=== PATIENT | female | born 1960 | race Caucasian/White ===

== ENCOUNTER 2017-07-08 09:31 | Emergency (ER) | payer BC, OTHER ==
[2017-07-08 10:13] VITALS: BP 137/87
[2017-07-08 10:49] LABS: Urine Bilirubin Negative (NEGATIVE); Urine Blood 25 /ul (NEGATIVE); Urine Ketone Negative (NEGATIVE); Urine Nitrite Negative (NEGATIVE); Urine Protein 15 mg/dL (NEGATIVE); Urine Specific Gravity 1.015 SP.GR. (1.005-1.010); Urine Urobilinogen Normal (NORMAL); Urine pH 7.5 pH (5.0-7.0)
[2017-07-08 10:57] LABS: Urine Appearance Clear; Urine Bacteria TRACE; Urine Color Yellow; Urine WBC 0-5 /hpf (0-5)
--- NOTE | 2017-07-08 11:59 | ERNOTE ---
ER Female HPI Date of Service: 07/08/17 Stated Complaint: KIDNEY STONE Presenting Symptoms: other - right flank pain Time Seen by Provider: 07/08/17 10:22 Source: patient Exam Limitations: no limitations Immunizations: IMMUNIZATION HX Immunizations Up to Date Yes History of Influenza Vaccine Yes Hx Pneumococcal Vaccination Yes Allergies/Adverse Reactions: Allergies acetaminophen [From Vicodin] Allergy (Intermediate, Verified 04/13/16 12:53) hydrocodone bitartrate [From Vicodin] Allergy (Intermediate, Verified 04/13/16 12:53) nitrofurantoin [From Macrobid] Allergy (Intermediate, Verified 04/13/16 12:53) nitrofurantoin macrocrystalline [From Macrobid] Allergy (Intermediate, Verified 04/13/16 12:53) codeine [Codeine] Allergy (Verified 04/13/16 12:53) Sulfa (Sulfonamide Antibiotics) [Sulfa(Sulfonamide Antibiotics)] Allergy ( Verified 04/13/16 12:53) Home Medications: HOME MEDICATIONS Ipratropium/Albuterol Sulfate [Combivent Inhaler] 1 puff IH TID 02/01/13 [Last Taken 06/22/13] Bumetanide [Bumex] 2 mg PO DAILY 05/11/14 [Last Taken Unknown] Potassium Chloride [Klor-Con M10] 10 meq PO DAILY 05/11/14 [Last Taken Unknown] Naproxen [Naprosyn] 500 mg PO BID PRN #60 tab 04/13/16 [Last Taken Unknown] Amox Tr/Potassium Clavulanate [Augmentin 875-125 Tablet] 875 mg PO Q12H #20 tab 07/08/17 [Last Taken Unknown] - History of Present Illness Narrative: Patient presents to the ED for right flank pain. She relates she has a long Hx of kidney stones and has been having off and on right flnak pain for the last week. She was concerned that she had a recurrent kidney stone and is requesting a CT. SHe denies abdominal pain. no fever or vomiting. No pain with urination. No CP or SOB. No diarrhea or blood in stool. She states she has not had any abdominal pain. Pain right now mild but it fluctuates. Timing: Present: intermittent Quality: Present: mild Onset Location: Present: other - right flank Radiation: Present: none Activities at Onset: Present: none Modifying Factors - (Improves): Present: other - nothing Modifying Factors - (Worsens): Present: other - nothing Associated Symptoms: Absent: fever/chills, vomiting, abdominal pain, dysuria, urinary frequency Prior Treatment: Absent: recently seen Review of Systems - Review of Systems Constitutional: Absent: fever Respiratory: Absent: shortness of breath Cardiology: Absent: chest pain Gastrointestinal/Abdominal: Present: See HPI Genitourinary: Absent: frequency, dysuria Musculoskeletal: Present: no symptoms reported Skin: Absent: rash Neurological: Absent: weakness - Patient's Past Medical History Patient History - Medical: Chronic Pain, Kidney stone Patient History - Cardiac/Respiratory: Asthma Patient History - Cancer: No Hx of Cancer Patient History - Surgical Procedures: Appendectomy, Hysterectomy, T & A, Other Patient History - Other: None LMP (females 10-50): other - Family History Mother Family History - Cardiac/Respiratory: Valvular Heart Disease Father Family History - Medical: - Social History Living Situations: home Abuse History: No History of abuse Psych History: No pertinent hx Smoking Status: Never smoker - Immunizations Immunizations Up to Date: Yes Hx Pneumococcal Vaccination: Yes History of Influenza Vaccine: Yes Physical Exam - Physical Exam General Appearance: Present: alert, no apparent distress Head Exam: Present: normal inspection, no evidence of injury Eye Exam: Normal inspection: bilateral, PERRL: bilateral Ears, Nose, Throat: Present: normal ENT inspection Neck: Present: normal inspection Respiratory: Present: no respiratory distress, normal breath sounds, no accessory muscle use, lungs clear Cardiovascular/Chest: Present: regular rate, rhythm Gastrointestinal/Abdominal: Present: normal bowel sounds, nontender, soft, no organomegaly. Absent: tenderness, guarding, rebound Back Exam: Present: no vertebral tenderness, CVA tenderness (R) Extremity Exam: Present: normal inspection Neurological Exam: Present: alert, normal mood/affect, no motor/sensory deficits Skin Exam: Present: normal color, warm/dry ED Progress - Results and Orders Patient's Lab Results:: I have reviewed the patient's lab results. - Vital Signs Patient's Vital Signs:: I have reviewed the patient's vital signs. Vital Signs: Vital Signs 07/08/17 10:09 Temperature 36.6 C Pulse Rate 87 Respiratory 15 Rate Blood Pressure 137/87 O2 Sat by Pulse 95 Oximetry - CT/Ultrasound CT/Ultrasound Narrative: I reviewed official report of CT scan abdomen and pelvis - Progress/Reassessment Chief Complaint: Genitourinary Problem Progress Note-Subjective: 07/08/17 11:57 I discussed findings with the patient. Will treat the possible diverticulitis. I did offer her additional abdominal lab testing but she declines this, understands risks and benefits. She is requesting to go home. I discussed warning signs and reasons to return as well as the need for close f/u. Departure Clinical Impression: Right flank pain, Diverticulitis - Departure Disposition: Home self-care Condition: Stable Instructions: Flank Pain, [id number] Additional Instructions: Rest. Fluids. Antibiotics as directed. Follow-up with your doctor within 3 days for a re-check and to discuss your CT scan and any additional testing that may be needed. Return here if you change your mind about having any of the additional lab testing we discussed, or for fever, increased pain, vomiting or if your condition worsens or changes in any way. Referrals: Jhon Zambrano DO [Primary Care Provider] - Prescriptions: Amox Tr/Potassium Clavulanate [Augmentin 875-125 Tablet] 875 mg PO Q12H #20 tab
== END 2017-07-08 12:00 | disposition home or self-care (01) ==
LOC: ER 09:31
DX: R10.9 Unspecified abdominal pain (principal); K57.92 Diverticulitis of intestine, part unspecified, without perforation or abscess without bleeding; G89.29 Other chronic pain; Z87.442 Personal history of urinary calculi

== ENCOUNTER 2020-02-25 18:39 | Observation (INO) ==
--- NOTE | 2020-02-25 19:01 | ERNOTE ---
Back Pain ER HPI Date of Service: 02/25/20 Time Seen by Provider: 02/25/20 18:57 Source: patient Exam Limitations: no limitations Immunizations: IMMUNIZATION HX Immunizations Up to Date Yes History of Influenza Vaccine Yes Hx Pneumococcal Vaccination Yes Allergies/Adverse Reactions: Allergies Iodinated Contrast Media [Iodinated Contrast- Oral and IV Dye] Allergy (Intermediate, Verified 07/20/19 14:57) Swelling of Throat Penicillins Allergy (Intermediate, Verified 07/20/19 14:57) Swelling of Throat codeine [Codeine] Allergy (Mild, Verified 07/20/19 14:57) Hives apixaban [From Eliquis] Allergy (Verified 07/20/19 14:57) Anaphylaxis hydrocodone bitartrate [From Vicodin] Adverse Reaction (Mild, Verified 07/20/19 14:57) Nausea Home Medications: HOME MEDICATIONS Ipratropium/Albuterol Sulfate [Combivent Inhaler] 1 puff IH TID 02/01/13 [Last Taken 06/22/13] Bumetanide [Bumex] 2 mg PO DAILY 05/11/14 [Last Taken Unknown] Potassium Chloride [Klor-Con M10] 10 meq PO DAILY 05/11/14 [Last Taken Unknown] Fluticasone/Vilanterol [Breo Ellipta 100-25 Mcg INH] 1 puff INH DAILY 08/07/17 [Last Taken Unknown] Cholecalciferol (Vitamin D3) [Vitamin D3] 1,000 unit PO 3XW 04/25/19 [Last Taken Unknown] Warfarin Sodium [Coumadin] 2.5 mg PO DAILY 07/20/19 [Last Taken Unknown] - Pain Score Pain Score #1 Pain Score: 10 Narrative: The patient is a 59 year old female who presents for upper back pain which has been present for 3 hours. There are associated symptoms to dyspnea. The patient reports pain to upper back, 10/10. There are no alleviating factors. There are aggravating factors of activity. Previous treatments have included: none. The past medical history includes: asthma, intestinal fistula with placement of colostomy. The social history is negative. The patient has had no known ill contacts. Patient denies injury and states she was laying in bed and had abrupt pain. Patient denies associated increased dyspnea, cough, dizziness, radiation of pain of chest or nausea. Patient reports similar symptoms in the past which was associated with nerve pain and received relief after administration of steroid injection. Review of Systems - Review of Systems Constitutional: Present: fatigue. Absent: recent illness, fever EYE: Present: no symptoms reported ENT: Present: no symptoms reported. Absent: ear pain, nasal drainage, sore throat Respiratory: Present: shortness of breath. Absent: cough Cardiology: Absent: chest pain Gastrointestinal/Abdominal: Present: no symptoms reported. Absent: nausea, vomiting, diarrhea, abdominal pain Genitourinary: Present: no symptoms reported. Absent: dysuria Musculoskeletal: Present: back pain Skin: Present: no symptoms reported. Absent: rash Neurological: Present: no symptoms reported All Other Systems: All systems neg except as marked Medical History (Last Reviewed 02/25/20 @ 19:12 by KIMBERLY Abdul) Asthma Colostomy in place Intestinal fistula Lithoptysis Surgical History: Surgical History (Last Reviewed 02/25/20 @ 19:12 by KIMBERLY Abdul) History of intestinal surgery Hx of appendectomy Hx of tonsillectomy Hx of total hysterectomy Family History: Family History (Last Reviewed 02/25/20 @ 19:12 by KIMBERLY Abdul) Other No pertinent family history Social History: (Last Reviewed 02/25/20 @ 19:12 by KIMBERLY Abdul) Tobacco: Smoking Status: Never smoker Alcohol: alcohol intake: never Substance Use: substance use type: does not use Physical Exam - Physical Exam General Appearance: Present: wd/wn, alert, moderate distress Head Exam: Present: normal inspection, no evidence of injury Eye Exam: Normal inspection: bilateral Neck: Present: normal inspection Respiratory: Present: chest nontender, accessory muscle use, decreased breath sounds, rhonchi Cardiovascular/Chest: Present: no murmur, tachycardia Gastrointestinal/Abdominal: Present: normal bowel sounds, nontender, nondistended, soft, no organomegaly Back Exam: Present: normal inspection, vertebral tenderness - mild to thoracic and lumbar midline, no focal point tenderness at site of reported pain, minimal thoracic paraspinal pain with palpation Neurological Exam: Present: alert, oriented, normal mood/affect, no motor/sensory deficits Skin Exam: Present: normal color, warm/dry Progress - Date and Time Seen: Date and Time: 02/25/20 20:28 Patient PESI score intermediate risk, age adjusted d-dimer- 570 VTE unlikely. Due to patient's CXR with diffuse interstitial edema will await BNP and proceed. Results of testing was discussed with patient. Patient requesting that she be given steroids as is the only thing that aids with her symptoms. Discussed with patient that her symptoms may be associated with previous diagnosis but chest x- ray findings indicate interstitial edema which could be the likely cause of her back pain and increased chest burning and shortness of breath. Patient states that I must understand that she needs to receive steroids. I discussed this with Dr. Clay and we will administer a single dose of dexamethasone to aid with patient's chronic back pain. 02/25/20 20:51 Case discussed with and will place patient in observation for diuresis and potassium administration. 02/25/20 21:17 Patient refusing IV potassium. Will change to po administration. We will keep patient on telemetry monitoring due to hypokalemia. - Results and Orders Patient's Lab Results:: I have reviewed the patient's lab results. - Vital Signs Patient's Vital Signs:: I have reviewed the patient's vital signs. Vital Signs: Vital Signs 02/25/20 18:44 Temperature 36.3 C Pulse Rate 115 H Respiratory Rate 20 Blood Pressure 124/90 H O2 Sat by Pulse Oximetry 98 - EKG EKG #1 EKG: NSR - wandering baseline, no acute ischemic change, tachycardia rate 120, premature ventricular contraction - X-Ray X-Ray #1 X-Ray: chest Interpretation: Reviewed by me X-ray Comments: IMPRESSION: LOW LUNG VOLUMES. BORDERLINE CARDIOMEGALY WITH PULMONARY VASCULAR CONGESTION. INTERSTITIAL PROMINENCE THAT APPEARS TO BE INTERSTITIAL EDEMA DISCUSSED. Electronically signed by Mynor Rea M.D.. - Progress/Reassessment Chief Complaint: Back Pain Departure Clinical Impression: Hypokalemia Interstitial edema Qualifiers: Edema type: unspecified Qualified Code(s): R60.9 - Edema, unspecified - Departure Disposition: Still a patient Condition: Stable
[2020-02-25 19:26] LABS: Hematocrit 36.7 % (37.0-47.0); Hemoglobin 11.8 gm/dL (12.5-16.0); Mean Cell Volume 91.3 fl (78-100); Mean Corpuscular Hemoglobin 29.4 pg (27-31); Mean Corpuscular Hgb Conc 32.2 g/dl (32-36); Mean Platelet Volume 8.4 fl (8-12.5); Neutrophil # 6.1 K/mm3 (1.3-6.0); Neutrophil % 71.6 % (42-75.0); Platelet Count 308 K/mm3 (150-450); Red Blood Count 4.02 M/mm3 (4.2-5.4); White Blood Count 8.5 K/mm3 (4.0-10.5)
[2020-02-25 19:38] LABS: Prothrombin Time (Patient) 12.9 Seconds (9.1-10.7)
[2020-02-25 19:39] LABS: INR 1.32 INR (0.92-1.08)
[2020-02-25 19:44] LABS: ALT 46 U/L (19-67); AST 23 U/L (0-48); Albumin * 3.1 gm/dl (3.4-5.0); Alkaline Phosphatase * 132 U/L (50-170); Anion Gap 6.4 mmol/L (6.8-13.8); BUN/Creatinine Ratio 10.4 (9.0-21.6); Bilirubin, Total 0.5 mg/dL (0.0-1.1); Blood Urea Nitrogen 8 mg/dL (3-23); Ca. Corrected For Albumin 9.8 mg/dL (8.4-10.2); Calcium * 9.4 mg/dL (7.9-10.9); Carbon Dioxide 40.3 mmol/L (24-32.6); Chloride 93 mmol/L (97-106); Glucose * 141 mg/dL (70-110); Potassium 2.7 mmol/L (3.4-4.6); Sodium 137 mmol/L (132-142); Troponin I Less than 0.017 ng/mL (0.00-0.10)
[2020-02-25] MEDS ORDERED: DEXAMETHASONE SODIUM PHOSP/PF 10 MG/ML VIAL IV ONE (20:42)
[2020-02-25] MEDS ORDERED: WARFARIN SODIUM 5 MG TABLET PO ONE (20:42)
[2020-02-25] MEDS ORDERED: FUROSEMIDE 10 MG/ML VIAL IV ONE (20:42)
[2020-02-25] MEDS: POTASSIUM CHLORIDE IN WATER 100 ML IV SCH ×2 (21:10→22:51)
[2020-02-25] MEDS ORDERED: POTASSIUM CHLORIDE 20 MEQ TABLET.SA PO ONE (21:19)
[2020-02-25] MEDS ORDERED: ALBUTEROL SULFATE 2.5 MG/0.5 ML VIAL.NEB IH PRN (23:54)
[2020-02-26] MEDS: POTASSIUM CHLORIDE IN WATER 100 ML IV SCH ×2 (00:21→03:13)
[2020-02-26] MEDS ORDERED: ALBUTEROL SULFATE 2.5 MG/0.5 ML VIAL.NEB IH PRN (06:47)
[2020-02-26 07:50] LABS: Albumin * 2.9 gm/dl (3.4-5.0); Anion Gap 9.5 mmol/L (6.8-13.8); BUN/Creatinine Ratio 11.5 (9.0-21.6); Bilirubin, Total 0.5 mg/dL (0.0-1.1); Ca. Corrected For Albumin 9.9 mg/dL (8.4-10.2); Calcium * 9.3 mg/dL (7.9-10.9); Carbon Dioxide 35.4 mmol/L (24-32.6); Potassium 3.9 mmol/L (3.4-4.6); Total Protein 6.9 gm/dL (6.2-8.2)
--- NOTE | 2020-02-26 08:10 | HP ---
Chief Complaint - Chief Complaint Date of Service: 02/26/20 Time of Service: 08:09 Medical History (Last Reviewed 02/25/20 @ 22:19 by Brittni Sue RN) Asthma Colostomy in place Intestinal fistula Lithoptysis Surgical History: Surgical History (Last Reviewed 02/25/20 @ 22:19 by Brittni Sue, RN) History of intestinal surgery Hx of appendectomy Hx of tonsillectomy Hx of total hysterectomy Family History: Family History (Last Updated 02/25/20 @ 22:21 by Brittni Sue RN) Mother CHF (congestive heart failure) Father Myocardial infarction Other No pertinent family history Social History: (Last Reviewed 02/25/20 @ 19:25 by Elli Hill RN) Tobacco: Smoking Status: Never smoker Alcohol: alcohol intake: never Substance Use: substance use type: does not use Immunizations: IMMUNIZATION HX Immunizations Up to Date Yes History of Influenza Vaccine Yes Hx Pneumococcal Vaccination Yes Allergies/Adverse Reactions: Allergies Allergy/AdvReac Type Severity Reaction Status Date / Time Iodinated Contrast Media Allergy Intermediate Swelling Verified 07/20/19 14:57 [Iodinated Contrast- Oral of Throat and IV Dye] Penicillins Allergy Intermediate Swelling Verified 07/20/19 14:57 of Throat codeine [Codeine] Allergy Mild Hives Verified 07/20/19 14:57 apixaban [From Eliquis] Allergy Anaphylaxis Verified 07/20/19 14:57 hydrocodone bitartrate AdvReac Mild Nausea Verified 07/20/19 14:57 [From Vicodin] Home Medications: HOME MEDICATIONS Ipratropium/Albuterol Sulfate [Combivent Inhaler] 1 puff IH TID 02/01/13 [Last Taken 06/22/13] Bumetanide [Bumex] 2 mg PO DAILY 05/11/14 [Last Taken Unknown] Potassium Chloride [Klor-Con M10] 10 meq PO DAILY 05/11/14 [Last Taken Unknown] Fluticasone/Vilanterol [Breo Ellipta 100-25 Mcg INH] 1 puff INH DAILY 08/07/17 [Last Taken Unknown] Cholecalciferol (Vitamin D3) [Vitamin D3] 1,000 unit PO 3XW 04/25/19 [Last Taken Unknown] Warfarin Sodium [Coumadin] 2.5 mg PO DAILY 07/20/19 [Last Taken Unknown] Albuterol Sulfate [Albuterol Sulfate 2.5 MG/0.5ML] 1 vial INHALATION TID PRN 02/25/20 [Last Taken Unknown] Exam - Exam Vital Signs: Vital Signs - Last Taken Temp 36.5 C 02/26/20 06:52 Pulse 102 H 02/26/20 06:52 Resp 20 02/26/20 06:52 BP 103/61 02/26/20 06:52 Pulse Ox 95 02/26/20 06:52 Diagnostic Studies: Abnormal Lab Results 02/25/20 02/25/20 02/25/20 Range/Units 19:19 19:19 19:19 RBC 4.02 L (4.2-5.4) M/mm3 Hgb 11.8 L (12.5-16.0) gm/dL Hct 36.7 L (37.0-47.0) % RDW 16.0 H (11.5-14.0) % Immature Gran % (Auto) 0.90 H (0.001-0.429) % Immature Gran # (Auto) 0.08 H (0.000-0.0310) K/mm3 Lymphocytes % 16.0 L (20-51) % Monocytes % 10.2 H (0.0-9) % Neutrophils # 6.1 H (1.3-6.0) K/mm3 Lymphocytes # 1.36 L (1.5-3.5) k/mm3 PT 12.9 H (9.1-10.7) Seconds INR (Anticoag Therapy) 1.32 H (0.92-1.08) INR D-Dimer (0.19-0.49) ug/mL Potassium 2.7 L (3.4-4.6) mmol/L Chloride 93 L (97-106) mmol/L Carbon Dioxide 40.3 H (24-32.6) mmol/L Anion Gap 6.4 L (6.8-13.8) mmol/L Random Glucose 141 H (70-110) mg/dL Albumin 3.1 L (3.4-5.0) gm/dl 02/25/20 02/26/20 Range/Units 19:19 07:31 RBC (4.2-5.4) M/mm3 Hgb (12.5-16.0) gm/dL Hct (37.0-47.0) % RDW (11.5-14.0) % Immature Gran % (Auto) (0.001-0.429) % Immature Gran # (Auto) (0.000-0.0310) K/mm3 Lymphocytes % (20-51) % Monocytes % (0.0-9) % Neutrophils # (1.3-6.0) K/mm3 Lymphocytes # (1.5-3.5) k/mm3 PT (9.1-10.7) Seconds INR (Anticoag Therapy) (0.92-1.08) INR D-Dimer 0.83 H (0.19-0.49) ug/mL Potassium (3.4-4.6) mmol/L Chloride 95 L (97-106) mmol/L Carbon Dioxide 35.4 H (24-32.6) mmol/L Anion Gap (6.8-13.8) mmol/L Random Glucose 149 H (70-110) mg/dL Albumin 2.9 L (3.4-5.0) gm/dl Laboratory Results WBC 8.5 K/mm3 (4.0-10.5) 02/25/20 19:19 RBC 4.02 M/mm3 (4.2-5.4) L 02/25/20 19:19 Hgb 11.8 gm/dL (12.5-16.0) L 02/25/20 19:19 Hct 36.7 % (37.0-47.0) L 02/25/20 19:19 MCV 91.3 fl (78-100) 02/25/20 19:19 MCH 29.4 pg (27-31) 02/25/20 19:19 MCHC 32.2 g/dl (32-36) 02/25/20 19:19 RDW 16.0 % (11.5-14.0) H 02/25/20 19:19 Plt Count 308 K/mm3 (150-450) 02/25/20 19:19 MPV 8.4 fl (8-12.5) 02/25/20 19:19 Immature Gran % (Auto) 0.90 % (0.001-0.429) H 02/25/20 19:19 Immature Gran # (Auto) 0.08 K/mm3 (0.000-0.0310) H 02/25/20 19:19 Neutrophils % 71.6 % (42-75.0) 02/25/20 19:19 Lymphocytes % 16.0 % (20-51) L 02/25/20 19:19 Monocytes % 10.2 % (0.0-9) H 02/25/20 19:19 Eosinophils % 0.6 % (0.0-3.0) 02/25/20 19:19 Basophils % 0.7 % (0.0-1.0) 02/25/20 19:19 Nucleated RBC % 0.0 k/mm3 (0-1) 02/25/20 19:19 Neutrophils # 6.1 K/mm3 (1.3-6.0) H 02/25/20 19:19 Lymphocytes # 1.36 k/mm3 (1.5-3.5) L 02/25/20 19:19 Monocytes # 0.9 k/mm3 (0.0-1.0) 02/25/20 19:19 Eosinophils # 0.1 k/mm3 (0.0-0.7) 02/25/20 19:19 Absolute Basophils 0.1 k/mm3 (0.0-0.1) 02/25/20 19:19 PT 12.9 Seconds (9.1-10.7) H 02/25/20 19:19 INR (Anticoag Therapy) 1.32 INR (0.92-1.08) H 02/25/20 19:19 PTT (Tiana) 25.0 Seconds (24-32) 02/25/20 19:19 D-Dimer 0.83 ug/mL (0.19-0.49) H 02/25/20 19:19 Sodium 136 mmol/L (132-142) 02/26/20 07:31 Plasma Sodium 137 mmol/L (130-142) 02/26/20 07:31 Potassium 3.9 mmol/L (3.4-4.6) D 02/26/20 07:31 Chloride 95 mmol/L (97-106) L 02/26/20 07:31 Carbon Dioxide 35.4 mmol/L (24-32.6) H 02/26/20 07:31 Anion Gap 9.5 mmol/L (6.8-13.8) 02/26/20 07:31 BUN 9 mg/dL (3-23) 02/26/20 07:31 Creatinine 0.78 mg/dL (0.4-1.4) 02/26/20 07:31 Est GFR (Non-Af Amer) 81 mL/min (60-130) 02/26/20 07:31 BUN/Creatinine Ratio 11.5 (9.0-21.6) 02/26/20 07:31 Random Glucose 149 mg/dL (70-110) H 02/26/20 07:31 Calcium 9.3 mg/dL (7.9-10.9) 02/26/20 07: Calcium Adj for Albumin 9.9 mg/dL (8.4-10.2) 02/26/20 07: Total Bilirubin 0.5 mg/dL (0.0-1.1) 02/26/20 07:31 AST 22 U/L (0-48) 02/26/20 07:31 ALT 46 U/L (19-67) 02/26/20 07:31 Alkaline Phosphatase 123 U/L (50-170) 02/26/20 07:31 Troponin I Less than 0.017 ng/mL (0.00-0.10) 02/25/20 19:19 B-Natriuretic Peptide 74 pg/mL (5-205) 02/25/20 19:19 Total Protein 6.9 gm/dL (6.2-8.2) 02/26/20 07:31 Albumin 2.9 gm/dl (3.4-5.0) L 02/26/20 07:31
[2020-02-26] MEDS: ALBUTEROL SULFATE/IPRATROPIUM 3 ML NEBU IH SCH ×2 (08:12→12:51)
--- NOTE | 2020-02-26 08:39 | HPDIS ---
Chief Complaint - Chief Complaint Date of Service: 02/26/20 Time of Service: 08:38 Chief Complaint: upper thoracic pain History of Present Illness: Pt with PMHx of reactive airway disease on 3L O2, history of DVT and PE after bowel surgery last year, and colostomy after fistula, presented to the ED after having a few hours of upper thoracic pain and increased SOB. She has intermittent flares of her reactive airway disease. In the ED, workup showed interstitial prominence and pulmonary vascular congestion. WBC was 8.5, BNP not elevated at 74. She was hypokalemic, with a potassium level of 2.7. She declined IV repletion due to pain. She was adamant about receiving steroids for her upper back pain. She was given a dose of decadron and 40 mg IV lasix. On my exam this morning, she feels like she is close to her baseline. She did not require increased oxygen from her baseline. Denies fever, cough, chest pain, abdominal pain, urinary or skin symptoms. Medical History (Last Reviewed 02/25/20 @ 22:19 by Brittni Sue RN) Asthma Colostomy in place Intestinal fistula Lithoptysis Surgical History: Surgical History (Last Reviewed 02/25/20 @ 22:19 by Brittni Sue RN) History of intestinal surgery Hx of appendectomy Hx of tonsillectomy Hx of total hysterectomy Family History: Family History (Last Updated 02/25/20 @ 22:21 by Brittni Sue RN) Mother CHF (congestive heart failure) Father Myocardial infarction Other No pertinent family history Social History: (Last Reviewed 02/25/20 @ 19:25 by Elli Hill RN) Tobacco: Smoking Status: Never smoker Alcohol: alcohol intake: never Substance Use: substance use type: does not use Review Of Systems (GEN) - Review of Systems Generalized/Overall Review: Absent: Fever Respiratory: Present: Shortness of Breath. Absent: Cough Cardiac: Absent: Chest Pain, Edema Abdominal: Present: Other - has colostomy. Absent: Nausea, Vomiting, Abdominal Pain, Constipation, Diarrhea Genitourinary: Present: No Symptoms Reported Musculoskeletal: Present: Back Pain - upper Neurological: Present: No Symptoms Reported Skin: Present: No Symptoms Reported Immunizations: IMMUNIZATION HX Immunizations Up to Date Yes History of Influenza Vaccine Yes Hx Pneumococcal Vaccination Yes Allergies/Adverse Reactions: Allergies Allergy/AdvReac Type Severity Reaction Status Date / Time Iodinated Contrast Media Allergy Intermediate Swelling Verified 07/20/19 14:57 [Iodinated Contrast- Oral of Throat and IV Dye] Penicillins Allergy Intermediate Swelling Verified 07/20/19 14:57 of Throat codeine [Codeine] Allergy Mild Hives Verified 07/20/19 14:57 apixaban [From Eliquis] Allergy Anaphylaxis Verified 07/20/19 14:57 hydrocodone bitartrate AdvReac Mild Nausea Verified 07/20/19 14:57 [From Vicodin] Home Medications: HOME MEDICATIONS Ipratropium/Albuterol Sulfate [Combivent Inhaler] 1 puff IH TID 02/01/13 [Last Taken 06/22/13] Bumetanide [Bumex] 2 mg PO DAILY 05/11/14 [Last Taken Unknown] Potassium Chloride [Klor-Con M10] 10 meq PO DAILY 05/11/14 [Last Taken Unknown] Fluticasone/Vilanterol [Breo Ellipta 100-25 Mcg INH] 1 puff INH DAILY 08/07/17 [Last Taken Unknown] Cholecalciferol (Vitamin D3) [Vitamin D3] 1,000 unit PO 3XW 04/25/19 [Last Taken Unknown] Warfarin Sodium [Coumadin] 2.5 mg PO DAILY 07/20/19 [Last Taken Unknown] Albuterol Sulfate [Albuterol Sulfate 2.5 MG/0.5ML] 1 vial INHALATION TID PRN 02/25/20 [Last Taken Unknown] Methylprednisolone [Medrol Dosepak] 4 mg PO DAILY #5 tab.ds.pk 02/26/20 [Last Taken Unknown] Exam - Exam Vital Signs: Vital Signs - Last Taken Temp 36.5 C 02/26/20 06:52 Pulse 114 H 02/26/20 08:21 Resp 20 02/26/20 08:21 BP 103/61 02/26/20 06:52 Pulse Ox 95 02/26/20 08:12 Constitutional: Present: Alert, Cooperative, No distress, Overweight Respiratory: Present: no respiratory distress, other - on 3L NC via O2 Cardiovascular/Chest: Present: tachycardia Abdomen: Present: nontender, other - left sided colostomy Extremity: Absent: lower extremity edema Eye contact: Present: cooperative, good eye contact Diagnostic Studies: Abnormal Lab Results 02/25/20 02/25/2002/24/20 Range/Units 19:19 19:19 19:19 RBC 4.02 L (4.2-5.4) M/mm3 Hgb 11.8 L (12.5-16.0) gm/dL Hct 36.7 L (37.0-47.0) % RDW 16.0 H (11.5-14.0) % Immature Gran % (Auto) 0.90 H (0.001-0.429) % Immature Gran # (Auto) 0.08 H (0.000-0.0310) K/mm3 Lymphocytes % 16.0 L (20-51) % Monocytes % 10.2 H (0.0-9) % Neutrophils # 6.1 H (1.3-6.0) K/mm3 Lymphocytes # 1.36 L (1.5-3.5) k/mm3 PT 12.9 H (9.1-10.7) Seconds INR (Anticoag Therapy) 1.32 H (0.92-1.08) INR D-Dimer (0.19-0.49) ug/mL Potassium 2.7 L (3.4-4.6) mmol/L Chloride 93 L (97-106) mmol/L Carbon Dioxide 40.3 H (24-32.6) mmol/L Anion Gap 6.4 L (6.8-13.8) mmol/L Random Glucose 141 H (70-110) mg/dL Albumin 3.1 L (3.4-5.0) gm/dl 02/25/20 02/26/20 Range/Units 19:19 07:31 RBC (4.2-5.4) M/mm3 Hgb (12.5-16.0) gm/dL Hct (37.0-47.0) % RDW (11.5-14.0) % Immature Gran % (Auto) (0.001-0.429) % Immature Gran # (Auto) (0.000-0.0310) K/mm3 Lymphocytes % (20-51) % Monocytes % (0.0-9) % Neutrophils # (1.3-6.0) K/mm3 Lymphocytes # (1.5-3.5) k/mm3 PT (9.1-10.7) Seconds INR (Anticoag Therapy) (0.92-1.08) INR D-Dimer 0.83 H (0.19-0.49) ug/mL Potassium (3.4-4.6) mmol/L Chloride 95 L (97-106) mmol/L Carbon Dioxide 35.4 H (24-32.6) mmol/L Anion Gap (6.8-13.8) mmol/L Random Glucose 149 H (70-110) mg/dL Albumin 2.9 L (3.4-5.0) gm/dl Laboratory Results WBC 8.5 K/mm3 (4.0-10.5) 02/25/20 19:19 RBC 4.02 M/mm3 (4.2-5.4) L 02/25/20 19:19 Hgb 11.8 gm/dL (12.5-16.0) L 02/25/20 19:19 Hct 36.7 % (37.0-47.0) L 02/25/20 19:19 MCV 91.3 fl (78-100) 02/25/20 19:19 MCH 29.4 pg (27-31) 02/25/20 19:19 MCHC 32.2 g/dl (32-36) 02/25/20 19:19 RDW 16.0 % (11.5-14.0) H 02/25/20 19:19 Plt Count 308 K/mm3 (150-450) 02/25/20 19:19 MPV 8.4 fl (8-12.5) 02/25/20 19:19 Immature Gran % (Auto) 0.90 % (0.001-0.429) H 02/25/20 19:19 Immature Gran # (Auto) 0.08 K/mm3 (0.000-0.0310) H 02/25/20 19:19 Neutrophils % 71.6 % (42-75.0) 02/25/20 19:19 Lymphocytes % 16.0 % (20-51) L 02/25/20 19:19 Monocytes % 10.2 % (0.0-9) H 02/25/20 19:19 Eosinophils % 0.6 % (0.0-3.0) 02/25/20 19:19 Basophils % 0.7 % (0.0-1.0) 02/25/20 19:19 Nucleated RBC % 0.0 k/mm3 (0-1) 02/25/20 19:19 Neutrophils # 6.1 K/mm3 (1.3-6.0) H 02/25/20 19:19 Lymphocytes # 1.36 k/mm3 (1.5-3.5) L 02/25/20 19:19 Monocytes # 0.9 k/mm3 (0.0-1.0) 02/25/20 19:19 Eosinophils # 0.1 k/mm3 (0.0-0.7) 02/25/20 19:19 Absolute Basophils 0.1 k/mm3 (0.0-0.1) 02/25/20 19:19 PT 12.9 Seconds (9.1-10.7) H 02/25/20 19:19 INR (Anticoag Therapy) 1.32 INR (0.92-1.08) H 02/25/20 19:19 PTT (Butler) 25.0 Seconds (24-32) 02/25/20 19:19 D-Dimer 0.83 ug/mL (0.19-0.49) H 02/25/20 19:19 Sodium 136 mmol/L (132-142) 02/26/20 07:31 Plasma Sodium 137 mmol/L (130-142) 02/26/20 07:31 Potassium 3.9 mmol/L (3.4-4.6) D 02/26/20 07:31 Chloride 95 mmol/L (97-106) L 02/26/20 07:31 Carbon Dioxide 35.4 mmol/L (24-32.6) H 02/26/20 07:31 Anion Gap 9.5 mmol/L (6.8-13.8) 02/26/20 07:31 BUN 9 mg/dL (3-23) 02/26/20 07:31 Creatinine 0.78 mg/dL (0.4-1.4) 02/26/20 07:31 Est GFR (Non-Af Amer) 81 mL/min (60-130) 02/26/20 07:31 BUN/Creatinine Ratio 11.5 (9.0-21.6) 02/26/20 07:31 Random Glucose 149 mg/dL (70-110) H 02/26/20 07:31 Calcium 9.3 mg/dL (7.9-10.9) 02/26/20 07:31 Calcium Adj for Albumin 9.9 mg/dL (8.4-10.2) 02/26/20 07:31 Total Bilirubin 0.5 mg/dL (0.0-1.1) 02/26/20 07:31 AST 22 U/L (0-48) 02/26/20 07:31 ALT 46 U/L (19-67) 02/26/20 07:31 Alkaline Phosphatase 123 U/L (50-170) 02/26/20 07:31 Troponin I Less than 0.017 ng/mL (0.00-0.10) 02/25/20 19:19 B-Natriuretic Peptide 74 pg/mL (5-205) 02/25/20 19:19 Total Protein 6.9 gm/dL (6.2-8.2) 02/26/20 07:31 Albumin 2.9 gm/dl (3.4-5.0) L 02/26/20 07:31 Assessment/Plan - Assessment/Plan (1) Reactive airway disease Assessment: Her acute flare seems to have mostly resolved after 10 mg IV decadron. She usually gets a medrol dose pack from her physician, and asked multiple times if she would be getting one again. Discussed risks vs benefits of steroid use, including impairing her immune system, so she is aware. She did not require increased oxygen requirements. She is tachycardic on my exam, but she just received a breathing treatment. HR was in the 90's and low 100's overnight. DC home today. Problem: Acute Qualifiers: Asthma complication type: with acute exacerbation (2) Hypokalemia Assessment: She refused IV repletion. She was given 40 mEq K-Dur in the ED, and K+ improved from 2.7 last evening to 3.9 today. Will increase her home potassium repletion dose to 20 mEq daily. Could be due to bumex use. Problem: Acute (3) Interstitial edema Assessment: She is prescribed 2 mg bumex daily. She reports being on lasix so long that it made her nauseated. She was given 40 mg IV lasix last night, with near resolution of her symptoms. She could try 40 mg lasix prn at home should symptoms recur, though she may be resistant if she feels like it would cause nausea. If she has not had a recent echo, this could help explain her edema. Problem: Acute Qualifiers: Edema type: unspecified Qualified Code(s): R60.9 - Edema, unspecified (4) Colostomy in place Problem: Chronic (5) Subtherapeutic international normalized ratio (INR) Problem: Acute (6) History of pulmonary embolism Problem: Acute (7) History of DVT (deep vein thrombosis) Problem: Acute (1) Reactive airway disease Problem: Acute (2) Hypokalemia Problem: Acute (3) Interstitial edema Problem: Acute Qualifiers: Edema type: unspecified Qualified Code(s): R60.9 - Edema, unspecified (4) Colostomy in place Problem: Acute (5) Subtherapeutic international normalized ratio (INR) Diagnosis(s): INR of 1.3 on admit. She takes 2.5 mg warfarin daily, so will increase and give her a dose of 5 mg. Recheck INR at outpatient follow up. Problem: Acute (6) History of pulmonary embolism Problem: Acute (7) History of DVT (deep vein thrombosis) Problem: Acute Date of Discharge:: 02/26/20 Hospital Course: Presented with SOB and upper thoracic back pain. Hypokalemia, interstitial edema, and pulmonary congestion on workup in ED. Given 40mEq KDur, 40 mg IV lasix with near resolution of symptoms. DC'd home the day after admission with medrol dose pack. Echo could help explain edema, if none done recently through her PCP. She is anticoagulated for PE and DVT last year after surgery, but INR was subtherapeutic on admission at 1.3. Takes 2.5 mg warfarin daily, and was given a 5 mg dose while here. Recommend rechecking at follow up. Procedures Performed: none Results and Findings: Lab Pending Results 02/25/20 19:19: WBC 8.5, RBC 4.02 L, Hgb 11.8 L, Hct 36.7 L, MCV 91.3, MCH 29.4, MCHC 32.2, RDW 16.0 H, Plt Count 308, MPV 8.4, Immature Gran % (Auto) 0.90 H, Immature Gran # (Auto) 0.08 H, Neutrophils % 71.6, Lymphocytes % 16.0 L, Monocytes % 10.2 H, Eosinophils % 0.6, Basophils % 0.7, Nucleated RBC % 0.0, Neutrophils # 6.1 H, Lymphocytes # 1.36 L, Monocytes # 0.9, Eosinophils # 0.1, Absolute Basophils 0.1 02/25/20 19:19: Sodium 137, Plasma Sodium 138, Potassium 2.7 L, Chloride 93 L, Carbon Dioxide 40.3 H, Anion Gap 6.4 L, BUN 8, Creatinine 0.77, Est GFR (Non-Af Amer) 82, BUN/Creatinine Ratio 10.4, Random Glucose 141 H, Calcium 9.4, Calcium Adj for Albumin 9.8, Total Bilirubin 0.5, AST 23, ALT 46, Alkaline Phosphatase 132, Troponin I Less than 0.017, Total Protein 7.0, Albumin 3.1 L 02/25/20 19:19: PT 12.9 H, INR (Anticoag Therapy) 1.32 H, PTT (Butler) 25.0 02/25/20 19:19: B-Natriuretic Peptide 74 02/25/20 19:19: D-Dimer 0.83 H 02/26/20 07:31: Sodium 136, Plasma Sodium 137, Potassium 3.9 D, Chloride 95 L, Carbon Dioxide 35.4 H, Anion Gap 9.5, BUN 9, Creatinine 0.78, Est GFR (Non-Af Amer) 81, BUN/Creatinine Ratio 11.5, Random Glucose 149 H, Calcium 9.3, Calcium Adj for Albumin 9.9, Total Bilirubin 0.5, AST 22, ALT 46, Alkaline Phosphatase 123, Total Protein 6.9, Albumin 2.9 L Discharge Location: Home Disposition: Home self-care Condition: Stable Discharge Activity: Activity as tolerated Discharge Diet: General/regular food Additional Patient Instructions (free text): Patient would like to follow up with Dr. Hagen, if he is available. If not, she can follow up with Dr. Clay in a week. She has been seeing a physician who needed emergency heart surgery last week, and likely will not be available. No longer sees Dr. Zambrano. Prescriptions (Any new or edited meds): Methylprednisolone [Medrol Dosepak] 4 mg PO DAILY #5 tab.ds.pk Transmission Status: Pending to [facility] myED[facility] #[id number] Complete Home Medications List: Complete Home Medication List: Ipratropium/Albuterol Sulfate [Combivent Inhaler] 1 puff IH TID 02/01/13 Bumetanide [Bumex] 2 mg PO DAILY 05/11/14 Potassium Chloride [Klor-Con M10] 10 meq PO DAILY 05/11/14 Fluticasone/Vilanterol [Breo Ellipta 100-25 Mcg INH] 1 puff INH DAILY 08/07/17 Cholecalciferol (Vitamin D3) [Vitamin D3] 1,000 unit PO 3XW 04/25/19 Warfarin Sodium [Coumadin] 2.5 mg PO DAILY 07/20/19 Albuterol Sulfate [Albuterol Sulfate 2.5 MG/0.5ML] 1 vial INHALATION TID PRN 02/25/20 Methylprednisolone [Medrol Dosepak] 4 mg PO DAILY #5 tab.ds.pk 02/26/20
[2020-02-26] MEDS ORDERED: FLUTICASONE PROPION/SALMETEROL 14 PUFF DISK.W.DEV IH SCH (09:00)
[2020-02-26] MEDS ORDERED: POTASSIUM CHLORIDE 10 MEQ TABLET.SA PO SCH (09:00)
[2020-02-26] MEDS ORDERED: POTASSIUM CHLORIDE 20 MEQ TABLET.SA PO SCH (09:00)
[2020-02-26] MEDS ORDERED: BUMETANIDE 1 MG TABLET PO SCH (09:00)
[2020-02-26 12:37] VITALS: BP 121/72
[2020-02-26] MEDS ORDERED: WARFARIN SODIUM 2.5 MG TABLET PO SCH (17:00)
== END 2020-02-26 13:10 | disposition home or self-care (01) ==
LOC: ER 18:39 → MS 18:39
PROVIDERS: ADMIT Family Medicine; ATTEND Family Medicine
DX: E87.6 Hypokalemia; Z86.718 Personal history of other venous thrombosis and embolism; R79.1 Abnormal coagulation profile; M54.9 Dorsalgia, unspecified; Z93.3 Colostomy status; J45.901 Unspecified asthma with (acute) exacerbation
CPT/HCPCS: 36415; 71020; 71046; 80053; 83519; 83880; 84484; 85025; 85379; 85610; 85730; 87081; 93005; 94640; 94664; 96374; 96375; 99284; 99285; G0378